=== PATIENT | female | born 1980 | race Caucasian/White ===

== ENCOUNTER 2016-12-21 19:03 | Emergency (ER) | payer OTHER ==
[~2016-12-21] VITALS: Ht 170.2 cm; Wt 70.3 kg
--- NOTE | ~2016-12-21 | EKG ---
PATIENT: GISELA CAMP UNIT #: [id number] Ventricular Rate: 72 BPM Atrial Rate: 72 BPM P-R Interval: 136 ms QRS Duration: 76 ms Q-T Interval: 384 ms QTC Calculation(Bezet): 420 ms P [place]field: 66 degrees Calculated R [place]: 57 degrees Calculated T [place]: 41 degrees Diagnosis Line: Normal sinus rhythm with sinus arrhythmia Diagnosis Line: Possible Left atrial enlargement Diagnosis Line: Borderline ECG Diagnosis Line: When compared with ECG of 29-MAR-2016 09:56, Diagnosis Line: No significant change was found Diagnosis Line: Confirmed by ARTIE HOFF MD ([id number]) on Diagnosis Line: 12/22/2016 2:33:57 PM INTERPRETING MD: LUIS EDUARDO EARL
--- NOTE | ~2016-12-21 | CT16 ---
[facility] A Service of [facility] RADIOLOGY TEXT RESULTS PATIENT: GISELA CAMP LOCATION: SED : 76 UNIT #: [id number] AGE: [address]: Fady Terrazas MD SEX: F ORDER DR: [id number] [address] [id number] E MR#: [id number] Acc #: [id number] NAME: GISELA CAMP : 1980 SEX: F STUDY DATE/TIME: 12/21/2016 20:26 UNIT: SED ROOM: STUDY DESCRIPTION: CT Angio Chest for PE Attending Physician: Fady Terrazas M.D. Ordering Physician: Fady Terrazas M.D. Primary Care Physician: Fady Gross M.D. MEDICAL IMAGING REPORT This report is preliminary unless electronic signature is present. EXAM CT scan of the chest with intravenous contrast, 12/21/2016 HISTORY Left-side chest pain extending into the left shoulder beginning today, elevated D-dimer of 236. Evaluate for pulmonary embolus. TECHNIQUE Spiral CT was performed through the chest following intravenous contrast administration using pulmonary embolus protocol. 3-D reconstructions of the chest were then performed following intravenous contrast administration. This CT exam was performed with one or more of the following radiation dose reduction techniques: automatic exposure control, adjustment of mA and/or kV according to patient size, and iterative reconstruction. FINDINGS There is no CT evidence for pulmonary embolus. The heart is normal in size. There is no significant thoracic adenopathy. There are no pleural effusions. The lungs are clear. IMPRESSION No CT evidence for pulmonary embolus. Dictated by... Jamshid Bauman M.D. THIS IS AN ELECTRONICALLY VERIFIED REPORT Jamshid Bauman M.D. at 12/22/2016 2:20 PM ROSA M/karen [facility] A Service [facility] RADIOLOGY TEXT RESULTS PATIENT: GISELA CAMP LOCATION: SED : 76 UNIT #: [id number] AGE: [address]: Fady Terrazas MD SEX: F ORDER DR: TD: 12/22/2016 08:44 JOB #: [id number] MEDICAL IMAGING REPORT Page 1 of 1
[~2016-12-21 19:03] MED LIST: AFRIN15 M1 INH; AURALGAN OTIC S10 M1 OT; BACTRIM DS TABL1 TA1 PO; BENZONATATE PO; CIPRO PO; DICLOFENAC PO; E-MYCIN250 MG PO; LOMOTIL WHITE2.5 MG PO; MEDROL DOSEPAK4 MG PO; MOBIC PO; MOTRIN600 M1 PO; NO MEDICATIONS; OMNICEF PO; ORUDIS75 M1 PO; PERCOCET5/325 PO; PHENERGAN25 M1 PO; ROBITUSSIN A-C S5 ML PO; SUDAFED PO; VOLTAREN75 MG PO; ZANTAC PO; ZITHROMAX PO; ZOFRAN ODT4 MG PO; ZYPREXA PO; ZYRTEC-D TABLE1 EACH PO; [UNRECOGNIZED DRUG - OTHER] PO
[2016-12-21] MEDS ORDERED: ZOLOFT50 MG PO (19:23)
[2016-12-21 19:47] LABS: BASOPHIL# 0.1 X10e3 (0-0.3); BASOPHIL% 1.4 % (0-2.5); EOSINOPHIL# 0.4 X10e3 (0-0.7); EOSINOPHIL% 4.9 % (0.0-7.0); HEMATOCRIT 40.7 % (35.0-45.0); HEMOGLOBIN 14.1 gm/dL (12.0-16.0); LYMPHOCYTE# 2.7 X10e3 (1.0-3.5); MEAN CELL VOLUME 87.3 FL (83-96); MEAN CORPUSCULAR HEMOGLOBIN 30.2 PG (28-34); MEAN CORPUSCULAR HGB CONC 34.6 g/dL (30-36); MEAN PLATELET VOLUME 7.5 FL (6.5-11.5); MONOCYTE# 0.6 X10e3 (0-1.0); MONOCYTE% 7.2 % (3.0-12.0); NEUTROPHIL% 51.5 % (40-75); PLATELET COUNT 276 X10e3 (140-420); RED BLOOD COUNT 4.66 X10e (3.90-5.30); RED CELL DISTRIBUTION WIDTH 12.4 % (11.0-15.5); WHITE BLOOD COUNT 7.9 X10e3 (4.0-10.5)
[2016-12-21 19:48] LABS: DIFF IND NO
[2016-12-21 19:56] LABS: INR 1.2; PROTHROMBIN TIME (PATIENT) 14.1 SECONDS (9.5-12.4)
[2016-12-21 20:03] LABS: PARTIAL THROMBOPLASTIN TIME 30.6 SECONDS (25.6-38.1)
[2016-12-21 20:05] LABS: ALBUMIN SERUM 4.3 g/dL (3.5-5.0); ALKALINE PHOSPHATASE 79 U/L (32-92); ALT (SGPT) 13 U/L (10-40); AST (SGOT) 15 U/L (10-42); BILIRUBIN,TOTAL 0.4 mg/dL (0.2-2.0); BLOOD UREA NITROGEN 12 mg/dL (9-23); CALCIUM SERUM 9.1 mg/dL (8.4-10.2); CARBON DIOXIDE 25 mmol/L (22-31); CHLORIDE 106 mmol/L (100-111); CREATININE SERUM 0.8 mg/dL (0.6-1.4); GLOM FILT RATE Estimated 93.6 mL/min (>60); GLUCOSE FASTING 112 mg/dL (70-110); POTASSIUM 3.7 mmol/L (3.5-5.1); PROTEIN TOTAL SERUM 7.2 g/dL (6.0-8.3); SODIUM 136 mmol/L (135-145)
[2016-12-21 20:06] LABS: POC - CKMB <1.0 ng/mL (0.0-7.9); POC - TROPONIN <0.05 ng/mL (<=0.05)
[2016-12-21 20:08] LABS: BILIRUBIN, DIRECT <0.1 mg/dL (0.0-0.2); BILIRUBIN,INDIRECT 0.3 mg/dL (0.0-0.9)
== END 2016-12-21 22:36 | disposition home or self-care (01) ==
LOC: SED 19:03
PROVIDERS: Emergency Medicine
DX: R09.1 Pleurisy (principal); F17.200 Nicotine dependence, unspecified, uncomplicated
CPT/HCPCS: 36415; 71275; 80048; 80076; 82553; 84484; 85025; 85379; 85610; 85730; 93005; 96374; 99285; J1885; Q9967